=== PATIENT | female | born 2005 | race Caucasian/White ===

== ENCOUNTER 2025-05-15 17:02 | Emergency (ER) | payer MEDICAID ==
[~2025-05-15] VITALS: Ht 162.6 cm; Wt 56.0 kg
[2025-05-15 17:04] VITALS: O2SAT 98
[2025-05-15 17:05] VITALS: BP 105/64; PULSE 84; RESP 16; TEMP 37.2; O2SAT 99
[2025-05-15 17:44] LABS: CLARITY URINE CLOUDY (CLEAR); COLOR URINE ORANGE (YELLOW); GLUCOSE URINE NEGATIVE (NEGATIVE); KETONES URINE NEGATIVE (NEGATIVE); LEUKOCYTE ESTERASE URINE 1+ (NEGATIVE); NITRITE URINE POSITIVE (NEGATIVE); OCCULT BLOOD URINE 3+ (NEGATIVE); PH URINE 7.0 (4.5-8.0); PROTEIN URINE 1+ (NEGATIVE); SPECIFIC GRAVITY URINE 1.021 (1.005-1.030); UROBILINOGEN URINE 1.0 E.U./dL (0.2-1.0)
[2025-05-15 17:53] LABS: BACTERIA URINE 4+; RBC URINE TNTC /hpf (0-2); SQUAMOUS EPITHELIAL CELL URINE 1+ /lpf (RARE/1+)
== END 2025-05-15 19:30 | disposition left against medical advice (07) ==
LOC: ER 17:02
DX: R30.0 Dysuria (principal); R31.9 Hematuria, unspecified
CPT/HCPCS: 81003; 81025; 87077; 87186; 99281